=== PATIENT | male | born 1950 | race Caucasian/White ===

== ENCOUNTER 2019-03-26 18:37 | Emergency (ER) | payer MEDICARE, OTHER ==
[~2019-03-26] VITALS: Ht 188 cm; Wt 87.5 kg
[~2019-03-26 18:37] MED LIST: ATORVASTATIN CA40 MG PO; LISINOPRIL-HCT1 EACH PO
[2019-03-26] MEDS ORDERED: DITROPAN XL10 MG PO (18:49)
[2019-03-26] MEDS ORDERED: LOSARTAN POTAS100 MG PO (18:49)
== END 2019-03-26 19:46 | disposition home or self-care (01) ==
LOC: ED 18:37
DX: S52.572A Other intraarticular fracture of lower end of left radius, initial encounter for closed fracture (principal); V80.010A Animal-rider injured by fall from or being thrown from horse in noncollision accident, initial encounter; I10 Essential (primary) hypertension; Z79.899 Other long term (current) drug therapy
CPT/HCPCS: 29125; 73110; 99283-25

== ENCOUNTER 2019-04-01 08:00 | Day surgery (SDC) | payer MEDICARE, OTHER ==
[~2019-04-01] VITALS: Ht 188 cm; Wt 89.8 kg
[~2019-04-01 08:00] MED LIST changes: +ASPIR-LOW81 MG PO; +DITROPAN XL10 MG PO; +HYDROCHLOROTH12.5 MG PO; +LOSARTAN POTAS100 MG PO; +OXYBUTYNIN CHLO10 MG PO; +VITAMIN D32000 UNI1 PO
--- NOTE | 2019-04-01 12:13 | NUR ---
04/01/19 1213 Kelly Kitchen 1205 PATIENT ARRIVES TO PACU UNRESPONSIVE TO PAIN, ORAL AIRWAY IN PLACE. MASK AT 8 LITERS. 1210 PATIENT CONTINUES TO BE UNRESPONSIVE TO PAIN, ORAL AIRWAY IN PLACE. RESP EVEN AND UNLABORED, O2 TITRATED TO 6 LITERS.
--- NOTE | 2019-04-01 12:37 | NUR ---
PT IS BACK TO DS FROM PACU. HE IS AWAKE AND ORIENTED. HE IS ABLE TO DRINK WATER AND COFFEE, KEEPING IT DOWN. PT IS REQUESTING SOMETHING TO EAT. CALL LIGHT IS WITHIN REACH. IS AT THE BEDSIDE. NO ADDITIONAL NEEDS AT THIS TIME. WILL CONTINUE TO MONITOR.
--- NOTE | 2019-04-01 13:57 | NUR ---
LE 1330: PT IS UP TO THE BATHROOM WITH MINIMAL TO NO ASSIST. HE IS ABLE TO VOID QS. HE WOULD LIKE TO GO HOME AT THIS TIME. HE HAS MET ALL DC CRITERIA. LUPE DURAN GIVES HIM VERBAL DC INSTRUCTIONS WITH PRESENT. HE IS TAKEN OUT TO THE VEHICLE VIA WC, HE TRANSFERS HIMSELF FROM WC TO VEHICLE.
--- NOTE | 2019-04-03 07:12 | OR ---
[facility] [address] [facility] [place] [address] Signed DATE OF OPERATION: 04/01/2019 SURGEON: Bobby Arroyo MD PREOPERATIVE DIAGNOSIS: Displaced distal radial fracture, left. POSTOPERATIVE DIAGNOSIS: Displaced distal radial fracture, left. PROCEDURE: Open reduction and internal fixation. ANESTHESIA: General. SPECIMENS AND COMPLICATIONS: There were no specimens or complications. TOURNIQUET TIME: About 40 minutes. WHAT WAS DONE: The patient was taken to the operating room, placed on the operating table in supine position. After anesthesia was induced and airway secured, the patient's left upper extremity was positioned, prepped and draped in a routine sterile fashion. The fracture was manipulatively reduced and the knee was placed in 10 pounds of finger trap traction. The arm was exsanguinated with an Esmarch bandage. Pneumatic tourniquet was inflated to 250 mmHg pressure. We then made a volar incision directly over the FCR tendon beginning at the wrist flexion crease and extending proximally for about 4 inches. Skin was divided sharply. Subcutaneous tissue was bluntly spread. We opened the volar and then the dorsal surface of the FCR tendon sheath with curved tenotomy scissors. We then swept all the contents of the volar aspect of the forearm in an ulnar direction. We exposed the fracture site subperiosteally with blunt and sharp dissection. Once the exposure was completed, we used a Sewell elevator and a dental pick tool to tease the fragments back into place. Once we were happy with the reduction, a 4 x 8 distal volar radial plate was placed on the volar radius and positioned under fluoroscopic control. We then secured a single screw through the sliding hole and fine tuned the position. We then secured the plate with three additional cortical screws proximally and several pins and screws distally. This gave us excellent alignment and position and a solid Electronically Signed By: [place] [id number] PATIENT NAME: IKER MOY OPERATIVE REPORT DATE OF : 54 REPORT #: [id number] PHYSICIAN: BOBBY ARROYO MD PCP: ADAM SHIRLEY MD REPORT IS CONFIDENTIAL AND NOT TO BE RELEASED WITHOUT AUTHORIZATION [facility] [address] [place], [place] [address] Signed construct. The wound was gently irrigated and closed in a standard fashion. Sterile dressings were applied and he was placed in a volar splint. He was awakened, taken to recovery room where he arrived in stable condition. Counts were correct and antibiotic protocols were followed. Bobby Arroyo MD WFB/MODL /[id number] Copies: ~ Electronically Signed By: BOBBY ARROYO MD 04/03/19 0712 PATIENT NAME: IKER MOY OPERATIVE REPORT DATE OF : 54 REPORT #: [id number] PHYSICIAN: BOBBY ARROYO MD PCP: AADM SHIRLEY MD REPORT IS CONFIDENTIAL AND NOT TO BE RELEASED WITHOUT AUTHORIZATION
== END 2019-04-01 13:45 | disposition home or self-care (01) ==
LOC: OPS 08:00 → DS 08:00 → OPS 09:30
PROVIDERS: Orthopaedic Surgery
PROC: 0PSJ04Z Reposition Left Radius with Internal Fixation Device, Open Approach (ICD-10-PCS; principal; 2019-04-01 09:30)
DX: S52.532A Colles' fracture of left radius, initial encounter for closed fracture (principal); I10 Essential (primary) hypertension; F17.220 Nicotine dependence, chewing tobacco, uncomplicated; N40.0 Benign prostatic hyperplasia without lower urinary tract symptoms; I34.0 Nonrheumatic mitral (valve) insufficiency; E78.5 Hyperlipidemia, unspecified; G54.0 Brachial plexus disorders; Z88.8 Allergy status to other drugs, medicaments and biological substances; Z79.82 Long term (current) use of aspirin; Z79.899 Other long term (current) drug therapy; V80.010A Animal-rider injured by fall from or being thrown from horse in noncollision accident, initial encounter
CPT/HCPCS: 01830; 64415; 73100; 76942; C1713; J0690; J1100; J1885; J2250; J2405; J2704; J2795; J3010; J7120

== ENCOUNTER 2021-02-01 07:27 | Day surgery (SDC) | payer MEDICARE, OTHER ==
[~2021-02-01] VITALS: Ht 185.4 cm; Wt 95.5 kg
--- NOTE | 2021-02-01 09:22 | NUR ---
02/01/21 0922 Kelly Kitchen 0917 PATIENT ARRIVES TO PACU SLEEPING. AWAKENS WITH VERBAL STIMULI, BACK TO SLEEP WHEN NOT STIMULATED. RESP EVEN AND UNLABORED, NC AT 3 LITERS.
--- NOTE | 2021-02-02 08:19 | OR ---
[facility] [address] [place], [place] [address] Signed DATE OF OPERATION: 02/01/2021 SURGEON: Terri Zamudio MD PREOPERATIVE DIAGNOSES: 1. Left colon adenomatous polyp, 2015. 2. Diverticulosis. 3. Internal hemorrhoids. 4. Internal anal skin tags. POSTOPERATIVE DIAGNOSES: 1. A 3 mm polyp at hepatic flexure. 2. Moderate left-sided diverticulosis. 3. Internal anal skin tags. PROCEDURE: Colonoscopy with hot biopsy. ESTIMATED BLOOD LOSS: None. INDICATIONS: Teddy is a 70-year-old gentleman, who returns for followup colonoscopy. He had a small adenomatous polyp taken of the left colon in 2014. He also had a small hyperplastic polyp around that same area. We know he has diverticulosis on the left side. He has internal anal skin tags along with some internal hemorrhoid tissue. He returns now without any lower GI complaints. There is no family history of colon cancer or polyps. In the office, I gave him a pamphlet on colonoscopy and he understands the test quite well. He knows there is risk including, but not limited to gas bloating, crampy abdominal pain, bleeding, perforation requiring surgery, and missed diagnosis. He also understands the need for IV conscious sedation. He expressed understanding and wished to proceed. PROCEDURE NOTE: Teddy was taken into our endoscopy suite and placed in the left lateral decubitus position. He was given IV sedation with 4 mg of Versed and 100 mcg of fentanyl. A digital rectal exam was performed and this was unremarkable. He does have some mild to moderate induration of the prostate and enlargement. After this, the adult colonoscope was introduced and advanced all around into the cecum under direct visualization of camera without difficulty. He did take just a little abdominal compression in order to Electronically Signed By: ETRRI ZAMUDIO MD 02/02/21 0819 PATIENT NAME: TEDDY MOY OPERATIVE REPORT DATE OF : 54 REPORT #: [id number] PHYSICIAN: TERRI ZAMUDIO MD PCP: MARIBEL SHIRLEY MD REPORT IS CONFIDENTIAL AND NOT TO BE RELEASED WITHOUT AUTHORIZATION [facility] [address] [place], [place] [address] Signed advance the scope. We could easily see the light in the right lower quadrant. We could easily see the appendiceal orifice and the ileocecal valve. His prep was quite good. The scope was slowly withdrawn. We took pictures throughout for photodocumentation. We took out a tiny polyp in hepatic flexure. He has diverticula, moderate in size, moderate in number in his left colon. The rectum was unremarkable. Upon retroflexion of scope, we could see some internal anal skin tags, but not much in the way of hemorrhoids on this occasion. After this, the gas was suctioned out and the colonoscope removed. Teddy tolerated the procedure quite well. RECOMMENDATIONS: I will see Teddy back in my office in 7 to 14 days to review his results. Terri Zamudio MD ALB/MODL /[id number] cc: MD Maribel Middleton MD Copies: TERRI ZAMUDIO MD ~ Electronically Signed By: TERRI ZAMUDIO MD 02/02/21 0819 PATIENT NAME: TEDDY MOY OPERATIVE REPORT DATE OF : 54 REPORT #: [id number] PHYSICIAN: TERRI ZAMUDIO MD PCP: MARIBEL SHIRLEY MD REPORT IS CONFIDENTIAL AND NOT TO BE RELEASED WITHOUT AUTHORIZATION
--- NOTE | 2021-02-03 14:44 | PATH ---
[facility] [address] [place], [place] [address] Signed SPECIMEN(S): A HEPATIC FLEXURE COLON POLYP SPECIMEN SOURCE: A. HEPATIC FLEXURE COLON POLYP CLINICAL HISTORY: Colonoscopy. History of polyps, diverticulosis. Postop: Diverticulosis, colon polyp. MICROSCOPIC DESCRIPTION: Histologic sections of all submitted blocks are examined by light microscopy. These findings, together with the gross examination, support the pathologic diagnosis. FINAL PATHOLOGIC DIAGNOSIS: Colon, hepatic flexure, polyp, polypectomy: - Colonic mucosa with mucosal capillary congestion. - Negative for dysplasia or malignancy. NAL:cml:C2NR GROSS DESCRIPTION: The specimen, labeled "PM, hepatic flexure colon polyp," is received in formalin and consists of one wolf soft tissue fragment that measures 0.1 cm in greatest dimension. The specimen is entirely submitted in cassette (A1). JS (under the direct supervision of a pathologist) The Gross Description was prepared using a voice recognition system. The report was reviewed for accuracy; however, sound-alike word errors, addition and/or deletions may occur. If there is any question about this report, please contact Client Services. PERFORMING LABORATORY: The technical component was performed by [facility], [address] [place] [id number] (Forensic Audit Expert: Kadie Wallace MD; CLIA# [id number]). [facility], [address] [address] (CLIA# [id number]). Diagnostician: Venessa Dennis MD Pathologist Electronically Signed 02/03/2021 PATIENT NAME: IKER MOY PATHOLOGY DATE OF : 54 REPORT #: [id number] PHYSICIAN: MARTHA PATHOLOGY PCP: ADAM SHIRLEY MD REPORT IS CONFIDENTIAL AND NOT TO BE RELEASED WITHOUT AUTHORIZATION [address] [address] Signed Copies: ~ PATIENT NAME: IKER MOY PATHOLOGY DATE OF : 54 REPORT #: [id number] PHYSICIAN: MARTHA PATHOLOGY PCP: ADAM SHIRLEY MD REPORT IS CONFIDENTIAL AND NOT TO BE RELEASED WITHOUT AUTHORIZATION
== END 2021-02-01 09:50 | disposition home or self-care (01) ==
LOC: OPS 07:27 → DS 08:15 → OPS 08:15
PROVIDERS: ATTEND Colon & Rectal Surgery
PROC: 0DBL8ZX Excision of Transverse Colon, Via Natural or Artificial Opening Endoscopic, Diagnostic (ICD-10-PCS; principal; 2021-02-01 08:15)
DX: K57.30 Diverticulosis of large intestine without perforation or abscess without bleeding (principal); K64.4 Residual hemorrhoidal skin tags; K63.5 Polyp of colon; I10 Essential (primary) hypertension; F17.220 Nicotine dependence, chewing tobacco, uncomplicated; Z86.010 Personal history of colon polyps; Z88.8 Allergy status to other drugs, medicaments and biological substances
CPT/HCPCS: 99153; G0500; J0690; J2250; J3010; J7121